=== PATIENT | male | born 1955 | race Caucasian/White ===

== ENCOUNTER 2020-02-01 15:20 | IRF | payer OTHER, SELFPAY ==
--- NOTE | 2020-02-01 15:53 | PC.NURSE ---
This patient, Tristian Villarreal, was admitted to [facility] Room 226-02. Patient/family oriented to hospital policies and general routines including ID bracelet, bed and alarms, visiting hours, pain management, procedures, bathroom and other care routines, personal items, smoking policy, room service/diet, and visiting hours. Valuables list has been completed. Information on how to activate the Rapid Response Team has been discussed. Patient/Family are encouraged to report perceived risks to care and to ask questions if they do not understand what they are told or what they should do.
[2020-02-01 16:00] VITALS: BP 124/62; PULSE 85; RESP 20; TEMP 36.3; O2SAT 98; BMI 27.1
[2020-02-01 17:21] VITALS: BMI 27.1
[2020-02-01] MEDS: ACETAMINOPHEN 500 MG TABLET 1000 MG PO (19:56)
[2020-02-01] MEDS: FAMOTIDINE 20 MG TABLET PO (19:56)
[2020-02-01 21:01] VITALS: BP 138/70; PULSE 89; RESP 20; TEMP 37; O2SAT 96
[2020-02-01] MEDS: MIRTAZAPINE 30 MG TABLET PO (21:03)
[2020-02-01] MEDS: ALBUTEROL SULFATE NEB 2.5 MG/0.5 ML INH INHALATION (21:26)
[2020-02-01] MEDS: IPRATROPIUM BR 0.02% INH SOLN 0.5 MG/2.5 ML VIAL INHALATION (21:27)
[2020-02-02] VITALS (9 sets, daily range): BP systolic 125–131; BP diastolic 77–85; PULSE 79–95; RESP 18; TEMP 35.9–36.8; O2SAT 95–96
[2020-02-02] MEDS: ACETAMINOPHEN 500 MG TABLET 1000 MG PO ×4 (00:11→17:28)
[2020-02-02 05:40] LABS: Basophils Absolute Auto 0.1 K/mm3 (0.0-0.1); Basophils Percent Auto 0.7 % (0.2-1.2); Eosinophils Absolute Auto 0.4 K/mm3 (0-0.3); Eosinophils Percent Auto 4.3 % (0-4.4); Hematocrit 31.2 % (42.0-52.0); Hemoglobin 9.8 g/dL (14.0-18.0); Immature Granulocyte Absolute 0.03 K/mm3 (0.00-0.031); Immature Granulocyte Percent A 0.4 % (0-0.5); Lymphocytes Absolute Auto 1.83 K/mm3 (0.9-3.2); Lymphocytes Percent Auto 21.4 % (18.3-44.2); Mean Corpuscular HGB Conc 31.4 g/dl (32-36); Mean Corpuscular Hemoglobin 29.4 pg (26-34); Mean Corpuscular Volume 93.7 fl (80-100); Mean Platelet Volume 9.2 fl (7.4-10.4); Monocytes Absolute Auto 0.7 K/mm3 (0.1-0.6); Monocytes Percent Auto 8.6 % (2.6-8.5); Neutrophils Absolute Auto 5.5 K/mm3 (1.3-6.7); Neutrophils Percent Auto 64.6 % (45.5-73.1); Platelet Count Result 357 k/mm3 (150-375); Red Blood Count 3.33 M/mm3 (4.6-6.20); Red Cell Distribution Width 15.9 % (11.5-14.5); White Blood Count 8.6 K/mm3 (4.5-10.0)
[2020-02-02 05:52] LABS: Anion Gap 6 mmol/L (8-16); Blood Urea Nitrogen 10 mg/dL (9-20); Calcium 9.1 mg/dL (8.4-10.2); Carbon Dioxide 31 mmol/L (22-30); Chloride 100 mmol/L (98-107); Estimated CRCL calculation 80 ml/min; Estimated Glomerular Filt Rate > 60; Glucose 99 mg/dL (75-110); Potassium 4.5 mmol/L (3.4-5.0); Sodium 137 mmol/L (137-145)
[2020-02-02] MEDS: ENOXAPARIN 40 MG/0.4 ML SYRINGE SUB-Q (09:21)
[2020-02-02] MEDS: FLUCONAZOLE 100 MG TABLET 200 MG PO (09:22)
[2020-02-02] MEDS: LIDOCAINE 5% PATCH 1 PATCH TOPICAL (09:22)
[2020-02-02] MEDS: FAMOTIDINE 20 MG TABLET PO ×2 (09:22→17:28)
[2020-02-02] MEDS: ATORVASTATIN 10 MG TABLET PO (09:23)
[2020-02-02] MEDS: IPRATROPIUM BR 0.02% INH SOLN 0.5 MG/2.5 ML VIAL INHALATION ×3 (09:41→20:43)
[2020-02-02] MEDS: ALBUTEROL SULFATE NEB 2.5 MG/0.5 ML INH INHALATION ×3 (09:41→20:43)
--- NOTE | 2020-02-02 14:07 | WPDREHABHP ---
H&P: HPI History of Present Illness Date/Time: 02/02/20 14:07 HISTORY OF PRESENT ILLNESS: The patient's primary rehab impairment category is pulmonary [] The etiologic diagnosis is left-sided pneumonia [] I saw this patient [id number] on February 02, 2020 at 1:00 p.m. [] The patient is a 64 years old male with a past medical history of hypertension who underwent elective outpatient surgery of right rotator cuff on December 31, 2019. After returning home, the patient was seen at his local hospital and was diagnosed with pneumonia and prescribes cefuroxime, [place] from my seen and a Medrol Dosepak on January 03, 2020. The patient continued to report shortness of breath, but also experiences sudden onset of left posterior chest pain and back pain, so he presented to [facility] on January 08, 2020. Chest x-ray revealed subcutaneous emphysema on the left. With pneumo mediastinum and subcutaneous air identified as well. Chest CT showed the absence of pulmonary embolism, I small left basilar pneumothorax comprising less than 10%, is scattered ground-glass opacities in both lungs, is small bilateral effusion, and the presence of pneumomediastinum. The patient required intubation and mechanical ventilatory support. The patient did have 1 episode of self-extubation with re-intubation required. He was then transferred to [facility] on January 07, 2025 critical care management. Upon admission, chest CTs and x-ray showed worsening infiltrations on the left with concern for possible aspiration when he self-extubated or possibly aspiration related to intubation for surgical procedure. Cultures were obtained and the patient was placed on Levaquin and vancomycin. Chest tube was placed on January 10, 2020 for left pleural effusion. Pleural fluid showed elevated amylase of 4480, consistent with esophageal perforation. Pleural fluid grew Marianne albicans. Patient is currently on oral fluconazole old until February 07, 2020. On January 13, 2020 CT scan showed resolution of the ear in the mediastinum and pleural space. On January 17, 2020 showed a moderate-sized pleural effusion with most of the fluid in the posterior inferior dependent left hemithorax with diffuse pleural thickening surrounding the entire left lung. The patient completed several different antibiotic regimens while hospitalize most recent being Zosyn completed on January 28, 2020 the patient underwent thoracotomy with decortication on January 18, 2020 the patient was extubated on January 22, 2020 and transferred out of the ICU on January 24, 2020 medial and posterior chest tubes were removed on January 23, 2020. The patient was improved and is medically stable for discharge, repeat imaging shows a small effusion and no evidence for extravasation or aspiration in the esophagus. He is on room air. The patient's diet has been advanced. He will discharged to rehab on Lovenox for DVT prophylaxis. The patient has not traveled outside the [place] or head contact with someone who is ill there is travel outside the [place] in the past 21 days. The patient has not traveled to an area of the [place] there is experiencing known transmission of the Coronavirus and has not had close personal contact with anyone that has. The patient does not have a fever. The patient is not experiencing lower respiratory illness symptoms. He has had recent surgical intervention and experiencing shortness of breath and dyspnea on exertion. COVID test negative x2 therapy was initiated at the acute care facility and the patient transferred to us from [facility] on February 01, 2020 FALLS OR SURGERIES: The patient has had major surgeries in the 100 days prior to admission. The patient had no falls in the past year. The had no falls with injury in the past year. PAST MEDICAL HISTORY: [] hypertension, hypercholesterolemia, papillary stenosis, degenerative arthritis, glaucoma, chronic hear
[2020-02-02] MEDS: MIRTAZAPINE 30 MG TABLET PO (20:15)
[2020-02-02] MEDS: LATANOPROST 0.005% OP SOLN 2.5 ML BTL 1 DROP EACH EYE (20:15)
[2020-02-02] MEDS: ALPRAZolam 0.5 MG TABLET 1 MG PO (20:15)
[2020-02-03] VITALS (11 sets, daily range): BP systolic 125–129; BP diastolic 75–82; PULSE 80–96; RESP 18–20; TEMP 35.7–36.4; O2SAT 97–99
[2020-02-03] MEDS: ACETAMINOPHEN 500 MG TABLET 1000 MG PO ×4 (00:08→17:54)
[2020-02-03] MEDS: IPRATROPIUM BR 0.02% INH SOLN 0.5 MG/2.5 ML VIAL INHALATION ×4 (08:45→21:40)
[2020-02-03] MEDS: ALBUTEROL SULFATE NEB 2.5 MG/0.5 ML INH INHALATION ×4 (08:45→21:40)
[2020-02-03] MEDS: ENOXAPARIN 40 MG/0.4 ML SYRINGE SUB-Q (09:25)
[2020-02-03] MEDS: FLUCONAZOLE 100 MG TABLET 200 MG PO (09:26)
[2020-02-03] MEDS: ATORVASTATIN 10 MG TABLET PO (09:26)
[2020-02-03] MEDS: polyethylene glycoL 3350 17 GM POWD.PACK PO (09:26)
[2020-02-03] MEDS: FAMOTIDINE 20 MG TABLET PO ×2 (09:26→17:54)
[2020-02-03] MEDS: LIDOCAINE 5% PATCH 1 PATCH TOPICAL (09:26)
--- NOTE | 2020-02-03 12:27 | WPDNEURORHBP ---
Subjective Date/time seen: 02/03/20 64 years old with ongoing history of 1. Hypertension 2. Status post elective outpatient surgery of right rotator cuff on December 31, 2019 resulting in multiple secondary complications such as pneumonia subcutaneous emphysema on the left side with new move mediastinum pulmonary embolism with effusion and pneumomediastinum requiring intubation and ventilatory support and 1 time self-extubation resulting in the aspiration and suck secondary pneumonia pleural fluid growing Marianne albicans requiring anti fungal medications most recent CT scan showing resolution of the air in the mediastinum has undergone several different antibiotic regimens therapy thoracotomy and decortication was transferred to rehab when medically stable on DVT 12:27 Review of Systems Review of Systems: All systems reviewed & are unremarkable except as noted in HPI and below Functional Status Ambulation Ability Ability to Ambulate 10 Feet: Standby Assistance Ability to Ambulate 50 Feet With 2 Turns: Standby Assistance Ambulation Assistive Devices: Cane, Crow Transfers Ability Ability to Transfer In/Out of Chair: Standby Assistance Exam Narrative: Exam Narrative: examination at this time reveals him to be awake alert cooperative in no obvious acute distress but somewhat unhappy with the whole situation speech nor dysphasic not dysarthric not dysphonic able to move the left upper extremity well but complains of discomfort on the right upper extremity movement particularly at the shoulder heart is regular lungs with no rhonchi abdomen is soft nontender neurologically he is fairly nonfocal with normal speech good mental status Objective Data Vital Signs Vital Signs: Vital Signs - 24 hr 02/02/20 14:00 02/02/20 14:55 02/02/20 15:03 Temperature 35.9 C L Pulse Rate 80 94 94 Respiratory Rate 18 18 18 Blood Pressure 131/85 Pulse Oximetry 95 02/02/20 20:46 02/02/20 20:50 02/02/20 20:52 Temperature 36.8 C Pulse Rate 85 85 86 Respiratory Rate 18 18 18 Blood Pressure 128/77 Pulse Oximetry 96 02/03/20 05:01 02/03/20 08:45 02/03/20 08:55 Temperature 35.7 C L Pulse Rate 82 88 85 Respiratory Rate 18 18 18 Blood Pressure 125/75 Pulse Oximetry 99 02/03/20 11:45 Temperature Pulse Rate 84 Respiratory Rate 18 Blood Pressure Pulse Oximetry Intake/Output Intake/Output: Intake & Output 01/31/20 02/01/20 02/02/20 02/03/20 23:59 23:59 23:59 23:59 Intake Total 240 960 240 Balance 240 960 240 Meds/Results Medications: Active Medications Generic Name Dose Route Start Last Admin Trade Name Leti PHILLIP Reason Stop Dose Admin Acetaminophen 1,000 mg 02/01/20 18:00 02/03/20 06:08 Tylenol Tablet PO 1,000 mg Q6H NEELIMA Administration Albuterol 2.5 mg 02/01/20 20:00 02/03/20 11:44 Albuterol Sulf Neb 2.5mg/0.5ml INHALATION 03/02/20 20:01 2.5 mg QIDRT NEELIMA Administration Alprazolam 1 mg 02/02/20 21:00 02/02/20 20:15 Xanax PO 1 mg HS NEELIMA Administration Atorvastatin Calcium 10 mg 02/02/20 09:00 02/03/20 09:26 Lipitor PO 10 mg DAILY NEELIMA Administration Enoxaparin Sodium 40 mg 02/02/20 09:00 02/03/20 09:25 Lovenox SUB-Q 40 mg DAILY NEELIMA Administration Famotidine 20 mg 02/01/20 17:00 02/03/20 09:26 Pepcid PO 20 mg BID NEELIMA Administration Fluconazole 200 mg 02/02/20 09:00 02/03/20 09:26 Diflucan Tablet PO 02/07/20 09:01 200 mg DAILY NEELIMA Administration Ipratropium [place] 0.5 mg 02/01/20 20:00 02/03/20 11:45 Atrovent Neb INHALATION 03/02/20 20:01 0.5 mg QIDRT NEELIMA Administration Latanoprost 1 drop 02/02/20 21:00 02/02/20 20:15 Xalatan EACH EYE 1 drop HS NEELIMA Administration Lidocaine 1 patch 02/02/20 09:00 02/03/20 09:26 Lidoderm TOPICAL 1 patch DAILY NEELIMA Administration Mirtazapine 30 mg 02/01/20 21:00 02/02/20 20:15 Remeron PO 30 mg HS NEELIMA Administration Oxycodone HCl 5 mg 02/02/20 1
[2020-02-03] MEDS: ALPRAZolam 0.5 MG TABLET 1 MG PO (20:47)
[2020-02-03] MEDS: MIRTAZAPINE 30 MG TABLET PO (20:47)
[2020-02-03] MEDS: LATANOPROST 0.005% OP SOLN 2.5 ML BTL 1 DROP EACH EYE (20:48)
[2020-02-04] VITALS (9 sets, daily range): BP systolic 137–145; BP diastolic 77–88; PULSE 77–103; RESP 16–20; TEMP 36.6–36.9; O2SAT 94–97; BMI 27.1
[2020-02-04] MEDS: ACETAMINOPHEN 500 MG TABLET 1000 MG PO ×4 (02:54→18:53)
[2020-02-04] MEDS: IPRATROPIUM BR 0.02% INH SOLN 0.5 MG/2.5 ML VIAL INHALATION ×3 (08:32→20:14)
[2020-02-04] MEDS: ALBUTEROL SULFATE NEB 2.5 MG/0.5 ML INH INHALATION ×3 (08:32→20:14)
[2020-02-04] MEDS: FAMOTIDINE 20 MG TABLET PO ×2 (08:55→17:00)
[2020-02-04] MEDS: FLUCONAZOLE 100 MG TABLET 200 MG PO (08:55)
[2020-02-04] MEDS: ENOXAPARIN 40 MG/0.4 ML SYRINGE SUB-Q (08:55)
[2020-02-04] MEDS: ATORVASTATIN 10 MG TABLET PO (08:55)
[2020-02-04] MEDS: LIDOCAINE 5% PATCH 1 PATCH TOPICAL (08:56)
[2020-02-04] MEDS: polyethylene glycoL 3350 17 GM POWD.PACK PO (08:56)
--- NOTE | 2020-02-04 10:24 | WPDNEURORHBP ---
Subjective Date/time seen: 02/04/20 10:24 64 years old admitted to the hospital subsequent to elective outpatient surgery for right rotator cuff on December 31, 2019 resulting in multiple secondary complications such as pneumonia subcutaneous emphysema pulmonary embolism pneumomediastinum pneumonia at present he is stable was considering the use of the muscle relaxer because of the complaint of the lower back particularly in the morning he has use a muscle relaxer in the past but he is not very convinced that he definitely wants to use them Review of Systems Review of Systems: All systems reviewed & are unremarkable except as noted in HPI and below Functional Status Ambulation Ability Ability to Ambulate 10 Feet: Standby Assistance Ability to Ambulate 50 Feet With 2 Turns: Standby Assistance Ability to Ambulate 150 Feet: Standby Assistance Ambulation Assistive Devices: Cane, Crow Transfers Ability Ability to Transfer In/Out of Chair: Standby Assistance Exam Narrative: Exam Narrative: examination revealed awake alert cooperative in no obvious acute distress except every now and then complain of low back pain but at the same time is reluctant to use the muscle relaxer and is able to carry on the physical therapy his speech is not dysphasic not dysarthric heart regular lungs clear abdomen is normal bowel sounds nontender and neurological examination is essentially unchanged Objective Data Vital Signs Vital Signs: Vital Signs - 24 hr 02/03/20 11:45 02/03/20 11:55 02/03/20 14:00 Temperature 36.4 C Pulse Rate 84 86 96 Respiratory Rate 18 18 20 Blood Pressure 129/82 Pulse Oximetry 97 02/03/20 16:07 02/03/20 16:18 02/03/20 21:41 Temperature Pulse Rate 88 87 84 Respiratory Rate 18 18 18 Blood Pressure Pulse Oximetry 02/03/20 21:48 02/03/20 22:00 02/04/20 06:00 Temperature 36.4 C L 36.6 C Pulse Rate 86 80 77 Respiratory Rate 18 20 20 Blood Pressure 145/82 H Pulse Oximetry 98 97 02/04/20 08:34 02/04/20 08:40 Temperature Pulse Rate 89 90 Respiratory Rate 16 16 Blood Pressure Pulse Oximetry Intake/Output Intake/Output: Intake & Output 02/01/20 02/02/20 02/03/20 02/04/20 23:59 23:59 23:59 23:59 Intake Total 240 960 960 240 Balance 240 960 960 240 Meds/Results Medications: Active Medications Generic Name Dose Route Start Last Admin Trade Name Leti PRN Reason Stop Dose Admin Acetaminophen 1,000 mg 02/01/20 18:00 02/04/20 05:24 Tylenol Tablet PO 1,000 mg Q6H NEELIMA Administration Albuterol 2.5 mg 02/01/20 20:00 02/04/20 08:32 Albuterol Sulf Neb 2.5mg/0.5ml INHALATION 03/02/20 20:01 2.5 mg QIDRT NEELIMA Administration Alprazolam 1 mg 02/02/20 21:00 02/03/20 20:47 Xanax PO 1 mg HS NEELIMA Administration Atorvastatin Calcium 10 mg 02/02/20 09:00 02/04/20 08:55 Lipitor PO 10 mg DAILY NEELIMA Administration Enoxaparin Sodium 40 mg 02/02/20 09:00 02/04/20 08:55 Lovenox SUB-Q 40 mg DAILY NEELIMA Administration Famotidine 20 mg 02/01/20 17:00 02/04/20 08:55 Pepcid PO 20 mg BID NEELIMA Administration Fluconazole 200 mg 02/02/20 09:00 02/04/20 08:55 Diflucan Tablet PO 02/07/20 09:01 200 mg DAILY NEELIMA Administration Ipratropium [place] 0.5 mg 02/01/20 20:00 02/04/20 08:32 Atrovent Neb INHALATION 03/02/20 20:01 0.5 mg QIDRT NEELIMA Administration Latanoprost 1 drop 02/02/20 21:00 02/03/20 20:48 Xalatan EACH EYE 1 drop HS NEELIMA Administration Lidocaine 1 patch 02/02/20 09:00 02/04/20 08:56 Lidoderm TOPICAL 1 patch DAILY NEELIMA Administration Mirtazapine 30 mg 02/01/20 21:00 02/03/20 20:47 Remeron PO 30 mg HS NEELIMA Administration Oxycodone HCl 5 mg 02/02/20 18:00 02/04/20 05:24 Roxicodone Ir Tablet PO 5 mg Q6HR NEELIMA Administration Polyethylene Glycol 17 gm 02/03/20 09:00 02/04/20 08:56 Miralax PO 17 gm QAM NEELIMA Administration Progress Note: A&P Assessment a
--- NOTE | 2020-02-04 12:03 | RPD ---
INDIVIDUALIZED PLAN OF CARE FOR Tristian Villarreal Brief Synthesis of Pre-Admission Screen, Post-Admission Evaluation and Therapy Evaluations: The patient presents to rehab with left-side pneumonia. Comorbidities include acute hypoxemic respiratory failure, mediastinitis, empyema, s/p thoracotomy, esophageal perforation, hypertension, hypercholesterolemia , right rotator cuff repair, degenerative arthritis, glaucoma, chronic hearing loss, GERD, and atopic dermatitis. The complexity of the patient's medical management, nursing, and therapy needs require an inpatient rehab hospital stay with a physician-led interdisciplinary team approach. The patient?s needs will be best met in an intensive program vs. at a lower level of care. The patient requires physician services for medical oversight, management of post-op complications in setting of present comorbidities, and pain management. The patient requires nursing services for anticoagulation therapy, DVT prophylactics, infection protection, medication management and education, pressure relief, and wound care. Deficits include:ADLs, Balance, Endurance, Family Training/Education, Mobility, Pain Management, Safety, Strength, Transfers, and ROM. Exchange Operator/Case Management for: Discharge Planning and Patient/Family Counseling Physical Therapy: 5 days per week for 90 minutes. Treatments may include: Therapeutic Exercise, Gait Training, Neuromuscular Re-education, Transfer Training, Community Reintegration, Bed Mobility, Patient/Family Education, Wheelchair Mobility Group Therapy/Concurrent Therapy Rationales: -Improve attention span during functional activities in a distracted environment. -Enhance problem solving and/or adequate judgment skills during functional activities in a distracted environment. -Promote increased safety awareness in a distracted environment to reduce fall risk with functional tasks, transfers, and ambulation to allow a more safe, self-sufficient return to the home environment. -Improve dynamic balance skills to promote safety and independence with functional activities in a distracted environment for maximum gain. Occupational Therapy: 5 days per week for 90 minutes. Treatments may include: Therapeutic Exercise, Therapeutic Activity, Cognitive Training, Self-Care Transfer Training, Community Reintegration, Home Management, Patient/Family Education, Wheelchair Mobility Training, Energy Conservation Training Group Therapy/Concurrent Therapy Rationales: -Allow therapist to observe and teach generalization and carry-over of skills learned in individual therapy. -Enhance problem solving and sequencing skills during therapeutic activities in a distracted environment. -Promote increased safety awareness in a realistic setting to reduce fall risk with functional tasks due to visual and verbal distractions. -Increase functional level with ADLs, ADL transfers and use of adaptive equipment through therapeutic activities with others while promoting safety to allow a more safe, self-sufficient return home. Medical Prognosis: Good Anticipated Length of Stay: 10 days Rehab Goals: Eating Goal: 06-Independent Oral Hygiene Goal: 06-Independent Toileting Hygiene Goal: 06-Independent Shower/Bathe Self Goal: 06-Independent Upper Body Dressing Goal: 06-Independent Lower Body Dressing Goal: 06-Independent Putting On/Taking Off Footwear Goal: 06-Independent Rolling Left and Right Goal: 06-Independent Sit to Lying Goal: 06-Independent Lying to Sitting on Side of Bed Goal: 06-Independent Sit to Stand Goal: 06-Independent Chair/Inb-[id number]-[id number] Transfer Goal: 06-Independent Toilet Transfer Goal: 06-Independent Car Transfer Goal: 06-Independent Walk 10' Goal: 06-Independent Walk 50' with Two Turns Goal: 06-Independent Walk 150' Goal: 06-Independent Walk 10' on Uneven Surface Goal: 06-Independent 1 Step (Curb) Goal: 06-Independent 4 Steps Goal: 06-Independent 12 Steps Goal Score: 06-Independent Picking Up Objec
--- NOTE | 2020-02-04 18:20 | PCRCNOTE ---
PT WAS NOT AVAILABLE FOR TREATMENT WANTED TO EAT. OUT OF RESPIRATORY TIME WINDOW
[2020-02-04] MEDS: ALPRAZolam 0.5 MG TABLET 1 MG PO (20:22)
[2020-02-04] MEDS: LATANOPROST 0.005% OP SOLN 2.5 ML BTL 1 DROP EACH EYE (20:23)
[2020-02-04] MEDS: MIRTAZAPINE 30 MG TABLET PO (20:23)
[2020-02-05] VITALS (7 sets, daily range): BP systolic 123–140; BP diastolic 68–76; PULSE 82–88; RESP 16–20; TEMP 36.1–36.9; O2SAT 94–100
[2020-02-05] MEDS: ACETAMINOPHEN 500 MG TABLET 1000 MG PO ×4 (02:00→17:35)
[2020-02-05] MEDS: ENOXAPARIN 40 MG/0.4 ML SYRINGE SUB-Q (08:57)
[2020-02-05] MEDS: ATORVASTATIN 10 MG TABLET PO (08:57)
[2020-02-05] MEDS: FLUCONAZOLE 100 MG TABLET 200 MG PO (08:57)
[2020-02-05] MEDS: polyethylene glycoL 3350 17 GM POWD.PACK PO (08:58)
[2020-02-05] MEDS: FAMOTIDINE 20 MG TABLET PO ×2 (08:58→17:35)
[2020-02-05] MEDS: LIDOCAINE 5% PATCH 1 PATCH TOPICAL (08:58)
--- NOTE | 2020-02-05 09:22 | PCPTNOTE ---
Tristian Rankin Phil was evaluated for a hemicane on 02/05/2020 by this physical therapist. The hemicane will resolve patient's mobility limitations and will be used for ADL's within the home. The patient can safely use the hemicane. ?The hemicane will resolve the patient?s mobility deficits, including transfers/gait/ADL's. Leia Gonzales PT
--- NOTE | 2020-02-05 09:22 | PCPTNOTE ---
Tristian Rankin Phil was evaluated for a straight cane on 02/05/2020 by this physical therapist. The cane will resolve patient's mobility limitations and will be used for ADL's within the home. The patient can safely use the cane. ?The cane will resolve the patient?s mobility deficits, including transfers/gait/ADL's. Leia Gonzales PT
--- NOTE | 2020-02-05 09:47 | PCOTNOTE ---
Therapist spoke with Dr. Blackburn ([phone]) 02/05/20 regarding clarification of NWB to RT UE following rotator cuff repair 12/31/19. Dr. Blackburn gave order to begin gentle passive ROM to RT UE starting today 02/05/20. Discharge sling 02/11/20 and begin AROM including pulleys, as well as stretching, with no ROM restrictions. No lifting greater than 10 pounds.
--- NOTE | 2020-02-05 11:11 | P.PNNERE_ITS ---
Subjective Date/time seen: 02/05/20 11:11 Functional Status Ambulation Ability Ability to Ambulate 10 Feet: Independent Ability to Ambulate 50 Feet With 2 Turns: Independent Ability to Ambulate 150 Feet: Independent Ambulation Assistive Devices: Cane, Crow Transfers Ability Ability to Transfer In/Out of Chair: Standby Assistance Objective Data Vital Signs Vital Signs: Vital Signs - 24 hr 02/04/20 14:00 02/04/20 14:14 02/04/20 20:15 Temperature 36.6 C Pulse Rate 103 H 95 85 Respiratory Rate 20 18 16 Blood Pressure 137/88 Pulse Oximetry 97 02/04/20 20:17 02/04/20 20:21 02/04/20 20:25 Temperature 36.9 C Pulse Rate 84 90 Respiratory Rate 16 18 Blood Pressure 138/77 Pulse Oximetry 94 97 02/05/20 05:56 Temperature 36.1 C L Pulse Rate 87 Respiratory Rate 18 Blood Pressure 123/76 Pulse Oximetry 95 Intake/Output Intake/Output: Intake & Output 02/02/20 02/03/20 02/04/20 02/05/20 23:59 23:59 23:59 23:59 Intake Total 960 960 720 360 Balance 960 960 720 360 Meds/Results Medications: Active Medications Generic Name Dose Route Start Last Admin Trade Name Freq PRN Reason Stop Dose Admin Acetaminophen 1,000 mg 02/01/20 18:00 02/05/20 06:11 Tylenol Tablet PO 1,000 mg Q6H NEELIMA Administration Albuterol 2.5 mg 02/01/20 20:00 02/04/20 20:14 Albuterol Sulf Neb 2.5mg/0.5ml INHALATION 03/02/20 20:01 2.5 mg QIDRT NEELIMA Administration Alprazolam 1 mg 02/02/20 21:00 02/04/20 20:22 Xanax PO 1 mg HS NEELIMA Administration Atorvastatin Calcium 10 mg 02/02/20 09:00 02/05/20 08:57 Lipitor PO 10 mg DAILY NEELIMA Administration Enoxaparin Sodium 40 mg 02/02/20 09:00 02/05/20 08:57 Lovenox SUB-Q 40 mg DAILY NEELIMA Administration Famotidine 20 mg 02/01/20 17:00 02/05/20 08:58 Pepcid PO 20 mg BID NEELIMA Administration Fluconazole 200 mg 02/02/20 09:00 02/05/20 08:57 Diflucan Tablet PO 02/07/20 09:01 200 mg DAILY NEELIMA Administration Ipratropium [place] 0.5 mg 02/01/20 20:00 02/04/20 20:14 Atrovent Neb INHALATION 03/02/20 20:01 0.5 mg QIDRT NEELIMA Administration Latanoprost 1 drop 02/02/20 21:00 02/04/20 20:23 Xalatan EACH EYE 1 drop HS NEELIMA Administration Lidocaine 1 patch 02/02/20 09:00 02/05/20 08:58 Lidoderm TOPICAL 1 patch DAILY NEELIMA Administration Mirtazapine 30 mg 02/01/20 21:00 02/04/20 20:23 Remeron PO 30 mg HS NEELIMA Administration Oxycodone HCl 5 mg 02/02/20 18:00 02/05/20 06:11 Roxicodone Ir Tablet PO 5 mg Q6HR NEELIMA Administration Polyethylene Glycol 17 gm 02/03/20 09:00 02/05/20 08:58 Miralax PO 17 gm QAM NEELIMA Administration
--- NOTE | 2020-02-05 11:13 | WPDNEURORHBP ---
Subjective Date/time seen: 02/05/20 11:13 Interval history: this 64-year-old is here after having had a thoracotomy for the significant pneumonia he had a complicated course as well described in the history and physical examination the patient denies any significant amount of the chest pain shortness of breath fever chills sore throat his progressing in the rehab quite well Review of Systems Review of Systems: All systems reviewed & are unremarkable except as noted in HPI and below Functional Status Ambulation Ability Ability to Ambulate 10 Feet: Independent Ability to Ambulate 50 Feet With 2 Turns: Independent Ability to Ambulate 150 Feet: Independent Ambulation Assistive Devices: Cane, Crow Transfers Ability Ability to Transfer In/Out of Chair: Standby Assistance Exam Const: General: comfortable and no acute distress HENMT: General nose exam: Normal nares present Mouth: Yes moist mucous membranes Eyes: General: appearance normal, both eyes and all related structures Neck: Neck: supple and no JVD Chest: Other: the thoracotomy incision looks clean and healthy lonny are there and will be removed as per instructions from the thoracic surgeon Resp: Effort & Inspection: normal respiratory effort Auscultation: clear to auscultation bilaterally Cardio: Rate: regular rate Rhythm: regular rhythm Skin: General skin exam: normal color and no rashes or lesions noted Neuro: Other: patient is awake alert and oriented to time place and person has normal speech and language function normal cranial examination generalized weakness of both lower extremities needing some assistance in the activities daily living Extrem: General: normal to inspection Other: the incision or small incisions rather from the rotator cuff surgery on his right shoulder is clean and healthy however he is nonweightbearing in that arm because of the recent surgery Psych: Mental Status: mental status grossly normal Objective Data Vital Signs Vital Signs: Vital Signs - 24 hr 02/04/20 14:00 02/04/20 14:14 02/04/20 20:15 Temperature 36.6 C Pulse Rate 103 H 95 85 Respiratory Rate 20 18 16 Blood Pressure 137/88 Pulse Oximetry 97 02/04/20 20:17 02/04/20 20:21 02/04/20 20:25 Temperature 36.9 C Pulse Rate 84 90 Respiratory Rate 16 18 Blood Pressure 138/77 Pulse Oximetry 94 97 02/05/20 05:56 Temperature 36.1 C L Pulse Rate 87 Respiratory Rate 18 Blood Pressure 123/76 Pulse Oximetry 95 Intake/Output Intake/Output: Intake & Output 02/02/20 02/03/20 02/04/20 02/05/20 23:59 23:59 23:59 23:59 Intake Total 960 960 720 360 Balance 960 960 720 360 Meds/Results Medications: Active Medications Generic Name Dose Route Start Last Admin Trade Name Leti PRN Reason Stop Dose Admin Acetaminophen 1,000 mg 02/01/20 18:00 02/05/20 06:11 Tylenol Tablet PO 1,000 mg Q6H NEELIMA Administration Albuterol 2.5 mg 02/01/20 20:00 02/04/20 20:14 Albuterol Sulf Neb 2.5mg/0.5ml INHALATION 03/02/20 20:01 2.5 mg QIDRT NEELIMA Administration Alprazolam 1 mg 02/02/20 21:00 02/04/20 20:22 Xanax PO 1 mg HS NEELIMA Administration Atorvastatin Calcium 10 mg 02/02/20 09:00 02/05/20 08:57 Lipitor PO 10 mg DAILY NEELIMA Administration Enoxaparin Sodium 40 mg 02/02/20 09:00 02/05/20 08:57 Lovenox SUB-Q 40 mg DAILY NEELIMA Administration Famotidine 20 mg 02/01/20 17:00 02/05/20 08:58 Pepcid PO 20 mg BID NEELIMA Administration Fluconazole 200 mg 02/02/20 09:00 02/05/20 08:57 Diflucan Tablet PO 02/07/20 09:01 200 mg DAILY NEELIMA Administration Ipratropium [place] 0.5 mg 02/01/20 20:00 02/04/20 20:14 Atrovent Neb INHALATION 03/02/20 20:01 0.5 mg QIDRT NEELIMA Administration Latanoprost 1 drop 02/02/20 21:00 02/04/20 20:23 Xalatan EACH EYE 1 drop HS NEELIMA Administration Lidocaine 1 patch 02/02/20 09:00 02/05/20 08:58 Lidoderm TOPICAL 1 patch DAILY NEELIMA Administrati
--- NOTE | 2020-02-05 11:18 | PCRCNOTE ---
PT UNAVAILABLE THE FEW TIMES THE THERAPIST CAME BY
[2020-02-05] MEDS: IPRATROPIUM BR 0.02% INH SOLN 0.5 MG/2.5 ML VIAL INHALATION ×2 (13:15→20:40)
[2020-02-05] MEDS: ALBUTEROL SULFATE NEB 2.5 MG/0.5 ML INH INHALATION ×2 (13:15→20:40)
[2020-02-05] MEDS: MIRTAZAPINE 30 MG TABLET PO (21:25)
[2020-02-05] MEDS: LATANOPROST 0.005% OP SOLN 2.5 ML BTL 1 DROP EACH EYE (21:25)
[2020-02-05] MEDS: ALPRAZolam 0.5 MG TABLET 1 MG PO (21:25)
[2020-02-06] VITALS (12 sets, daily range): BP systolic 120–143; BP diastolic 74–82; PULSE 79–93; RESP 16–20; TEMP 36.3–36.6; O2SAT 94–97
[2020-02-06] MEDS: ACETAMINOPHEN 500 MG TABLET 1000 MG PO ×5 (05:58→23:54)
[2020-02-06] MEDS: LIDOCAINE 5% PATCH 1 PATCH TOPICAL (08:59)
[2020-02-06] MEDS: polyethylene glycoL 3350 17 GM POWD.PACK PO (08:59)
[2020-02-06] MEDS: ATORVASTATIN 10 MG TABLET PO (09:00)
[2020-02-06] MEDS: ENOXAPARIN 40 MG/0.4 ML SYRINGE SUB-Q (09:00)
[2020-02-06] MEDS: FLUCONAZOLE 100 MG TABLET 200 MG PO (09:00)
[2020-02-06] MEDS: ALBUTEROL SULFATE NEB 2.5 MG/0.5 ML INH INHALATION ×4 (09:05→20:36)
[2020-02-06] MEDS: IPRATROPIUM BR 0.02% INH SOLN 0.5 MG/2.5 ML VIAL INHALATION ×4 (09:05→20:36)
[2020-02-06] MEDS: FAMOTIDINE 20 MG TABLET PO ×2 (09:21→18:14)
--- NOTE | 2020-02-06 10:51 | WPDNEURORHBP ---
Subjective Date/time seen: 02/06/20 10:51 Interval history: this 64-year-old gentleman is here status post thoracotomy on the left side Monie pneumonia which is being treated the patient is doing fairly well denies any headache nausea vomiting chest pain shortness of breath fever chills sore throat his generalized weakness is improving overall picture is of significant improvement the pain from the thoracotomy side is fairly decently controlled Review of Systems Review of Systems: All systems reviewed & are unremarkable except as noted in HPI and below Functional Status Ambulation Ability Ability to Ambulate 10 Feet: Independent Ability to Ambulate 50 Feet With 2 Turns: Independent Ability to Ambulate 150 Feet: Independent Ambulation Assistive Devices: Cane, Crow Transfers Ability Ability to Transfer In/Out of Chair: Independent Exam Const: General: comfortable and no acute distress HENMT: General nose exam: Normal nares present Mouth: Yes moist mucous membranes Eyes: General: appearance normal, both eyes and all related structures Neck: Neck: supple and no JVD Chest: Other: the site of the thoracotomy is clean healthy no sign of infection is noted lonny have been removed Resp: Effort & Inspection: normal respiratory effort Auscultation: clear to auscultation bilaterally Cardio: Rate: regular rate Rhythm: regular rhythm GI: GI Palp: Yes Soft to palpation Auscultation: normal bowel sounds Skin: General skin exam: normal color and no rashes or lesions noted Neuro: Other: patient is awake alert well oriented with the nonweightbearing of the right upper extremity for which he had the shoulder surgery performed which was followed by the pulmonary issues Extrem: General: normal to inspection Psych: Mental Status: mental status grossly normal Objective Data Vital Signs Vital Signs: Vital Signs - 24 hr 02/05/20 13:16 02/05/20 14:00 02/05/20 20:40 Temperature 36.3 C L Pulse Rate 84 86 87 Respiratory Rate 18 20 18 Blood Pressure 128/68 Pulse Oximetry 100 02/05/20 20:44 02/05/20 20:48 02/05/20 22:00 Temperature 36.9 C Pulse Rate 82 88 Respiratory Rate 16 18 Blood Pressure 140/74 Pulse Oximetry 94 97 02/06/20 06:00 02/06/20 09:07 02/06/20 09:12 Temperature 36.6 C Pulse Rate 79 91 91 Respiratory Rate 20 18 18 Blood Pressure 143/82 H Pulse Oximetry 94 Intake/Output Intake/Output: Intake & Output 02/03/20 02/04/20 02/05/20 02/06/20 23:59 23:59 23:59 23:59 Intake Total 960 720 840 480 Balance 960 720 840 480 Meds/Results Medications: Active Medications Generic Name Dose Route Start Last Admin Trade Name Brentonq PRN Reason Stop Dose Admin Acetaminophen 1,000 mg 02/01/20 18:00 02/06/20 05:58 Tylenol Tablet PO 1,000 mg Q6H NEELIMA Administration Albuterol 2.5 mg 02/01/20 20:00 02/06/20 09:05 Albuterol Sulf Neb 2.5mg/0.5ml INHALATION 03/02/20 20:01 2.5 mg QIDRT NEELIMA Administration Alprazolam 1 mg 02/02/20 21:00 02/05/20 21:25 Xanax PO 1 mg HS NEELIMA Administration Atorvastatin Calcium 10 mg 02/02/20 09:00 02/06/20 09:00 Lipitor PO 10 mg DAILY NEELIMA Administration Enoxaparin Sodium 40 mg 02/02/20 09:00 02/06/20 09:00 Lovenox SUB-Q 40 mg DAILY NEELIMA Administration Famotidine 20 mg 02/01/20 17:00 02/06/20 09:21 Pepcid PO 20 mg BID NEELIMA Administration Fluconazole 200 mg 02/02/20 09:00 02/06/20 09:00 Diflucan Tablet PO 02/07/20 09:01 200 mg DAILY NEELIMA Administration Ipratropium [place] 0.5 mg 02/01/20 20:00 02/06/20 09:05 Atrovent Neb INHALATION 03/02/20 20:01 0.5 mg QIDRT NEELIMA Administration Latanoprost 1 drop 02/02/20 21:00 02/05/20 21:25 Xalatan EACH EYE 1 drop HS NEELIMA Administration Lidocaine 1 patch 02/02/20 09:00 02/06/20 08:59 Lidoderm TOPICAL 1 patch DAILY NEELIMA Administration Mirtazapine 30 mg 02/01/20 21:00 02/05/20 21:25 Remeron PO 30 mg HS
[2020-02-06] MEDS: MIRTAZAPINE 30 MG TABLET PO (21:01)
[2020-02-06] MEDS: LATANOPROST 0.005% OP SOLN 2.5 ML BTL 1 DROP EACH EYE (21:01)
[2020-02-06] MEDS: ALPRAZolam 0.5 MG TABLET 1 MG PO (21:01)
[2020-02-07 05:45] VITALS: BP 135/84; PULSE 89; RESP 20; TEMP 36.9; O2SAT 96
[2020-02-07] MEDS: ACETAMINOPHEN 500 MG TABLET 1000 MG PO ×3 (05:59→18:02)
[2020-02-07] MEDS: ENOXAPARIN 40 MG/0.4 ML SYRINGE SUB-Q (09:33)
[2020-02-07] MEDS: polyethylene glycoL 3350 17 GM POWD.PACK PO (09:33)
[2020-02-07] MEDS: LIDOCAINE 5% PATCH 1 PATCH TOPICAL (09:33)
[2020-02-07] MEDS: FAMOTIDINE 20 MG TABLET PO ×2 (09:35→18:02)
[2020-02-07] MEDS: ATORVASTATIN 10 MG TABLET PO (09:35)
[2020-02-07] MEDS: FLUCONAZOLE 100 MG TABLET 200 MG PO (09:35)
--- NOTE | 2020-02-07 11:38 | PCRCNOTE ---
pt with occupational health this morning at 0800 tx time, and 1200 tx time. no tx given.
[2020-02-07 14:00] VITALS: BP 135/83; PULSE 100; RESP 20; TEMP 36.7; O2SAT 97
[2020-02-07 14:14] LABS: Basophils Percent Auto 0.4 % (0.2-1.2); Eosinophils Absolute Auto 0.2 K/mm3 (0-0.3); Eosinophils Percent Auto 2.1 % (0-4.4); Hematocrit 35.6 % (42.0-52.0); Hemoglobin 11.2 g/dL (14.0-18.0); Immature Granulocyte Absolute 0.04 K/mm3 (0.00-0.031); Immature Granulocyte Percent A 0.4 % (0-0.5); Lymphocytes Absolute Auto 1.88 K/mm3 (0.9-3.2); Lymphocytes Percent Auto 18.1 % (18.3-44.2); Mean Corpuscular HGB Conc 31.5 g/dl (32-36); Mean Corpuscular Hemoglobin 29.8 pg (26-34); Mean Corpuscular Volume 94.7 fl (80-100); Monocytes Absolute Auto 0.7 K/mm3 (0.1-0.6); Neutrophils Absolute Auto 7.5 K/mm3 (1.3-6.7); Platelet Count Result 414 k/mm3 (150-375); Red Blood Count 3.76 M/mm3 (4.6-6.20); Red Cell Distribution Width 15.2 % (11.5-14.5); White Blood Count 10.4 K/mm3 (4.5-10.0)
[2020-02-07 14:26] LABS: Anion Gap 10 mmol/L (8-16); Blood Urea Nitrogen 11 mg/dL (9-20); Calcium 9.7 mg/dL (8.4-10.2); Carbon Dioxide 30 mmol/L (22-30); Chloride 96 mmol/L (98-107); Estimated CRCL calculation 59 ml/min; Estimated Glomerular Filt Rate > 60; Glucose 113 mg/dL (75-110); Potassium 4.3 mmol/L (3.4-5.0); Sodium 136 mmol/L (137-145)
[2020-02-07] MEDS: ALBUTEROL SULFATE NEB 2.5 MG/0.5 ML INH INHALATION (15:13)
[2020-02-07] MEDS: IPRATROPIUM BR 0.02% INH SOLN 0.5 MG/2.5 ML VIAL INHALATION (15:13)
[2020-02-07 15:14] VITALS: PULSE 88; RESP 18
--- NOTE | 2020-02-07 17:21 | PC.NURSE ---
Patient concerned of tightness to incision of left scapula/flank area so took pictures per Dr. Nguyễn to send to his surgeon Dr. Castellanos. Spoke with Dr. Castellanos's nurse Guillermo and she stated that looked at pictures and is not concerned. Patient also requested blood cultures and those were done as well as CBC and BMP. WBC slightly elevated at 10.[address] Castellanos's nurse is aware as well. This fha underwriter asked if possible to move up his appointment as well from Feb 25; and she was able to change to at 1:15 (chest xray first). Patient is aware and entered into discharge instructions. Will continue to monitor for any s/s of distress such as SOB or cough.
[2020-02-07] MEDS: ALPRAZolam 0.5 MG TABLET 1 MG PO (20:33)
[2020-02-07] MEDS: MIRTAZAPINE 30 MG TABLET PO (20:33)
[2020-02-07] MEDS: LATANOPROST 0.005% OP SOLN 2.5 ML BTL 1 DROP EACH EYE (20:34)
[2020-02-07 21:20] VITALS: BP 131/75; PULSE 90; RESP 18; TEMP 36.6; O2SAT 97
[2020-02-08] MEDS: ACETAMINOPHEN 500 MG TABLET 1000 MG PO ×4 (00:25→17:01)
[2020-02-08 05:21] VITALS: BP 138/83; PULSE 86; RESP 18; TEMP 35.9; O2SAT 97
[2020-02-08] MEDS: FAMOTIDINE 20 MG TABLET PO ×2 (09:44→17:01)
[2020-02-08] MEDS: ATORVASTATIN 10 MG TABLET PO (09:44)
[2020-02-08] MEDS: LIDOCAINE 5% PATCH 1 PATCH TOPICAL (09:44)
[2020-02-08] MEDS: ENOXAPARIN 40 MG/0.4 ML SYRINGE SUB-Q (09:44)
[2020-02-08] MEDS: polyethylene glycoL 3350 17 GM POWD.PACK PO (09:45)
--- NOTE | 2020-02-08 09:49 | WPDNEURORHBP ---
Subjective Date/time seen: 02/07/20 09:49 Interval history: this is noted for February 07, 2020 patient was concerned about the possibility of infectious process at the side of the thoracotomy however the incision and the little swelling remains stable and in fact the redness is relatively better I had requested the CBC which shows related little elevated white count and our nurse was in touch after taking the pictures which were transmitted electronically to the surgeon his appointment was moved to early next week rather than waiting in February blood cultures are pending he has finished the course of the antibiotics he and the anti fungal he was on patient denied any headache nausea vomiting chills fevers chills sore throat however just does not feel good Review of Systems Review of Systems: All systems reviewed & are unremarkable except as noted in HPI and below Functional Status Ambulation Ability Ability to Ambulate 10 Feet: Independent Ability to Ambulate 50 Feet With 2 Turns: Independent Ability to Ambulate 150 Feet: Independent Ambulation Assistive Devices: Cane, Crow Transfers Ability Ability to Transfer In/Out of Chair: Independent Exam Const: General: comfortable and no acute distress HENMT: General nose exam: Normal nares present Mouth: Yes moist mucous membranes Eyes: General: appearance normal, both eyes and all related structures Neck: Neck: supple and no JVD Chest: Other: the incision of the thoracotomy of the left upper chest is clean the swelling is roughly either about the same or has gone down there is no tenderness there is no fluctuation noted to no hematoma noted and there is no sign of infection and the redness on the top part of the incision is much less Resp: Effort & Inspection: normal respiratory effort Auscultation: clear to auscultation bilaterally Cardio: Rate: regular rate Rhythm: regular rhythm GI: GI Palp: Yes Soft to palpation Auscultation: normal bowel sounds Skin: General skin exam: normal color and no rashes or lesions noted Neuro: Other: patient is awake alert well oriented not any distress he is limited because of the instructions to be nonweightbearing of the right upper extremity and that is where he had the shoulder surgery performed the incision of which is clean there is a little I would say not at the lower part of the right upper arm which is stable is not tender does not look infection is probably I small hematoma from either related to the IV however does not seem to be infected and it has been stable in the past few days Extrem: Other: I small swelling about an inch at the front of the right upper arm at the lower part does not seem infected or tender and has been stable in the previous few days Psych: Mental Status: mental status grossly normal Objective Data Vital Signs Vital Signs: Vital Signs - 24 hr 02/07/20 14:00 02/07/20 15:14 02/07/20 21:20 Temperature 36.7 C 36.6 C Pulse Rate 100 88 90 Respiratory Rate 20 18 18 Blood Pressure 135/83 131/75 Pulse Oximetry 97 97 02/08/20 05:21 Temperature 35.9 C L Pulse Rate 86 Respiratory Rate 18 Blood Pressure 138/83 Pulse Oximetry 97 Intake/Output Intake/Output: Intake & Output 02/05/20 02/06/20 02/07/20 02/08/20 23:59 23:59 23:59 23:59 Intake Total 840 960 720 480 Balance 840 960 720 480 Meds/Results Medications: Active Medications Generic Name Dose Route Start Last Admin Trade Name Freq PRN Reason Stop Dose Admin Acetaminophen 1,000 mg 02/01/20 18:00 02/08/20 05:44 Tylenol Tablet PO 1,000 mg Q6H NEELIMA Administration Hydrocodone Bitart/Acetaminophen 1 tab 02/07/20 10:42 [place] 5-325 Mg PO Q6H PRN Breakthrough Pain Albuterol 2.5 mg 02/08/20 09:05 Albuterol Sulf Neb 2.5mg/0.5ml INHALATION 03/02/20 20:01 QIDRT PRN Shortness Of Breath Or Wheezing Alprazolam 1 mg 02/02/20 21:00 02/07/20 20:33 Xanax PO 1 mg HS NEELIMA Administration Atorvas
--- NOTE | 2020-02-08 10:44 | PCDIET ---
Nutrition Follow-Up Complete: Nutrition Diagnosis: Involuntary weight loss related to prolonged hospitalization as evidenced by reported weight loss of 27 pounds during recent hospital stay. Nutrition Goal: Patient to consume 75% of meals or greater. Goal met. Patient consuming 100% of most meals on regular diet which is appropriate. Patient denies needs or concerns at this time. Declines oral supplement again. Snacks between meals encouraged to promote weight maintenance. Last recorded weight is 80.8 kg. Recommend obtaining new weight. Bowel Motility: Last BM on 02/07/20 per nursing flowsheet. Labs Reviewed: Hgb (11.2), Hct (35.6), Glu (113) Meds Noted: [place], Albuterol, Pepcid, Atrovent, Remeron, Roxicodone, Miralax Additional Notes: Surgical incision documented with no other skin issues. Will continue to monitor with same goal. Nutrition Monitoring and Evaluation: Follow up in 5 days.
--- NOTE | 2020-02-08 11:01 | WPDNEURORHBP ---
Subjective Date/time seen: 02/08/20 11:01 Interval history: this 64-year-old gentleman is here after a complicated course post shoulder surgery on his right side developing pneumonia followed by pleural effusion for which a thoracotomy was performed his doing fairly well but quite concerned about any infectious process however the incision is relatively kidney under and healthy and the knot in his lower part of the right upper arm is stable without any sign of infection process his white count is slightly elevated so I have over the CBC with diff and BMP for tomorrow his slid to be discharged couple of days and is asking for the medications to be done today so that he would orange picker with pharmacy Review of Systems Review of Systems: All systems reviewed & are unremarkable except as noted in HPI and below Functional Status Ambulation Ability Ability to Ambulate 10 Feet: Independent Ability to Ambulate 50 Feet With 2 Turns: Independent Ability to Ambulate 150 Feet: Independent Ambulation Assistive Devices: Cane, Crow Transfers Ability Ability to Transfer In/Out of Chair: Independent Exam Const: General: comfortable and no acute distress HENMT: General nose exam: Normal nares present Mouth: Yes moist mucous membranes Eyes: General: appearance normal, both eyes and all related structures Neck: Neck: supple and no JVD Chest: Other: the thoracotomy site on the left upper chest is clean and healthy /swelling but no sign of infection process no sign of hematoma Resp: Effort & Inspection: normal respiratory effort Auscultation: clear to auscultation bilaterally Cardio: Rate: regular rate Rhythm: regular rhythm GI: GI Palp: Yes Soft to palpation Auscultation: normal bowel sounds Skin: General skin exam: normal color and no rashes or lesions noted Neuro: Other: patient is awake and alert well oriented time place and person his generalized weakness improved his been walking at least 150 feet each day and maybe twice a day and doing fairly well as for as the generalized weakness and abilities concern Extrem: General: normal to inspection Psych: Mental Status: mental status grossly normal Objective Data Vital Signs Vital Signs: Vital Signs - 24 hr 02/07/20 14:00 02/07/20 15:14 02/07/20 21:20 Temperature 36.7 C 36.6 C Pulse Rate 100 88 90 Respiratory Rate 20 18 18 Blood Pressure 135/83 131/75 Pulse Oximetry 97 97 02/08/20 05:21 Temperature 35.9 C L Pulse Rate 86 Respiratory Rate 18 Blood Pressure 138/83 Pulse Oximetry 97 Intake/Output Intake/Output: Intake & Output 02/05/20 02/06/20 02/07/20 02/08/20 23:59 23:59 23:59 23:59 Intake Total 840 960 720 480 Balance 840 960 720 480 Meds/Results Medications: Active Medications Generic Name Dose Route Start Last Admin Trade Name Freq PRN Reason Stop Dose Admin Acetaminophen 1,000 mg 02/01/20 18:00 02/08/20 05:44 Tylenol Tablet PO 1,000 mg Q6H NEELIMA Administration Hydrocodone Bitart/Acetaminophen 1 tab 02/07/20 10:42 [place] 5-325 Mg PO Q6H PRN Breakthrough Pain Albuterol 2.5 mg 02/08/20 09:05 Albuterol Sulf Neb 2.5mg/0.5ml INHALATION 03/02/20 20:01 QIDRT PRN Shortness Of Breath Or Wheezing Alprazolam 1 mg 02/02/20 21:00 02/07/20 20:33 Xanax PO 1 mg HS NEELIMA Administration Atorvastatin Calcium 10 mg 02/02/20 09:00 02/08/20 09:44 Lipitor PO 10 mg DAILY NEELIMA Administration Enoxaparin Sodium 40 mg 02/02/20 09:00 02/08/20 09:44 Lovenox SUB-Q 40 mg DAILY NEELIMA Administration Famotidine 20 mg 02/01/20 17:00 02/08/20 09:44 Pepcid PO 20 mg BID NEELIMA Administration Ipratropium [place] 0.5 mg 02/08/20 09:05 Atrovent Neb INHALATION 03/02/20 20:01 QIDRT PRN Shortness Of Breath Or Wheezing Latanoprost 1 drop 02/02/20 21:00 02/07/20 20:34 Xalatan EACH EYE 1 drop HS NEELIMA Administration Lidocaine 1 patch 02/02/20 09:00 02/08/20 09:44 Lidoderm
--- NOTE | 2020-02-08 12:51 | PC.NURSE ---
pt has had increased sleepiness at this time. updated. roxicodone put on hold at this time. scheduled tylenol continues. will continue to monitor.
[2020-02-08 14:00] VITALS: BP 133/82; PULSE 90; RESP 18; TEMP 36.2; O2SAT 96
--- NOTE | 2020-02-08 16:00 | PC.NURSE ---
Patient is c/o pain to lower right calf, no redness or warmth, no induration, feels he may have pulled a muscle. will try warmth (K-pad)
[2020-02-08] MEDS: ALPRAZolam 0.5 MG TABLET 1 MG PO (20:20)
[2020-02-08] MEDS: LATANOPROST 0.005% OP SOLN 2.5 ML BTL 1 DROP EACH EYE (20:20)
[2020-02-08] MEDS: MIRTAZAPINE 30 MG TABLET PO (20:21)
[2020-02-08] MEDS: HYDROcodone/acetaminophen (*CRX) 5-325 MG TABLET 1 TAB PO (21:57)
[2020-02-08 22:00] VITALS: BP 137/72; PULSE 92; RESP 18; TEMP 37; O2SAT 96
[2020-02-09] MEDS: HYDROcodone/acetaminophen (*CRX) 5-325 MG TABLET 1 TAB PO ×4 (03:45→23:57)
[2020-02-09 04:56] LABS: Basophils Percent Auto 0.5 % (0.2-1.2); Eosinophils Absolute Auto 0.3 K/mm3 (0-0.3); Eosinophils Percent Auto 3.8 % (0-4.4); Hematocrit 30.6 % (42.0-52.0); Hemoglobin 9.7 g/dL (14.0-18.0); Immature Granulocyte Absolute 0.02 K/mm3 (0.00-0.031); Immature Granulocyte Percent A 0.2 % (0-0.5); Lymphocytes Absolute Auto 1.66 K/mm3 (0.9-3.2); Lymphocytes Percent Auto 20.4 % (18.3-44.2); Mean Corpuscular HGB Conc 31.7 g/dl (32-36); Mean Corpuscular Volume 91.3 fl (80-100); Mean Platelet Volume 8.9 fl (7.4-10.4); Monocytes Absolute Auto 0.6 K/mm3 (0.1-0.6); Monocytes Percent Auto 7.4 % (2.6-8.5); Neutrophils Absolute Auto 5.5 K/mm3 (1.3-6.7); Neutrophils Percent Auto 67.7 % (45.5-73.1); Platelet Count Result 360 k/mm3 (150-375); Red Blood Count 3.35 M/mm3 (4.6-6.20); Red Cell Distribution Width 14.6 % (11.5-14.5); White Blood Count 8.1 K/mm3 (4.5-10.0)
[2020-02-09 05:08] LABS: Anion Gap 6 mmol/L (8-16); Blood Urea Nitrogen 11 mg/dL (9-20); Carbon Dioxide 30 mmol/L (22-30); Chloride 98 mmol/L (98-107); Estimated CRCL calculation 80 ml/min; Estimated Glomerular Filt Rate > 60; Glucose 106 mg/dL (75-110); Potassium 4.4 mmol/L (3.4-5.0); Sodium 134 mmol/L (137-145)
[2020-02-09 06:00] VITALS: BP 119/78; PULSE 89; RESP 18; TEMP 36.3; O2SAT 97
[2020-02-09] MEDS: ACETAMINOPHEN 500 MG TABLET 1000 MG PO ×3 (06:11→17:49)
[2020-02-09] MEDS: ATORVASTATIN 10 MG TABLET PO (09:38)
[2020-02-09] MEDS: LIDOCAINE 5% PATCH 1 PATCH TOPICAL (09:39)
[2020-02-09] MEDS: FAMOTIDINE 20 MG TABLET PO ×2 (09:39→16:53)
[2020-02-09 14:00] VITALS: BP 123/88; PULSE 100; RESP 20; TEMP 36.1; O2SAT 98
--- NOTE | 2020-02-09 16:31 | WPDNEURORHBP ---
Subjective Date/time seen: 02/09/20 16:31 Interval history: this 64-year-old gentleman is here status post pneumonia status post thoracotomy and is ready to be discharged tomorrow the patient is afebrile a denies any shortness of breath chest pain and the white count is within the normal range she is not running any fever chills sore throat he does have an appointment to see the surgeon next week on Tuesday Review of Systems Review of Systems: All systems reviewed & are unremarkable except as noted in HPI and below Functional Status Ambulation Ability Ability to Ambulate 10 Feet: Independent Ability to Ambulate 50 Feet With 2 Turns: Independent Ability to Ambulate 150 Feet: Independent Ambulation Assistive Devices: Cane, Crow Transfers Ability Ability to Transfer In/Out of Chair: Independent Exam Const: General: comfortable, no acute distress and uncomfortable HENMT: General nose exam: Normal nares present Mouth: Yes moist mucous membranes Eyes: General: appearance normal, both eyes and all related structures Neck: Neck: supple and no JVD Chest: Other: the left thoracotomy site is clean no drainage is noted no sign of infection is seen no redness is noted Resp: Effort & Inspection: normal respiratory effort Auscultation: clear to auscultation bilaterally Cardio: Rate: regular rate Rhythm: regular rhythm GI: GI Palp: Yes Soft to palpation Auscultation: normal bowel sounds Skin: General skin exam: normal color and no rashes or lesions noted Neuro: Other: patient is awake and alert well oriented time place person has normal speech and language function and apart from the limitation due to his right shoulder surgery he has really essentially no other neurological deficit and is debility and weakness has improved Extrem: General: normal to inspection Other: right upper extremities in sling Psych: Mental Status: mental status grossly normal Objective Data Vital Signs Vital Signs: Vital Signs - 24 hr 02/08/20 22:00 02/09/20 06:00 02/09/20 14:00 Temperature 37.0 C 36.3 C L 36.1 C L Pulse Rate 92 89 100 Respiratory Rate 18 18 20 Blood Pressure 137/72 119/78 123/88 Pulse Oximetry 96 97 98 Intake/Output Intake/Output: Intake & Output 02/06/20 02/07/20 02/08/20 02/09/20 23:59 23:59 23:59 23:59 Intake Total 433 500 2707 480 Balance 330 525 1564 480 Meds/Results Medications: Active Medications Generic Name Dose Route Start Last Admin Trade Name Freq PRN Reason Stop Dose Admin Acetaminophen 1,000 mg 02/01/20 18:00 02/09/20 13:24 Tylenol Tablet PO 1,000 mg Q6H NEELIMA Administration Hydrocodone Bitart/Acetaminophen 1 tab 02/07/20 10:42 02/09/20 11:10 [place] 5-325 Mg PO 1 tab Q6H PRN Administration Breakthrough Pain Albuterol 2.5 mg 02/08/20 09:05 Albuterol Sulf Neb 2.5mg/0.5ml INHALATION 03/02/20 20:01 QIDRT PRN Shortness Of Breath Or Wheezing Alprazolam 1 mg 02/02/20 21:00 02/08/20 20:20 Xanax PO 1 mg HS NEELIMA Administration Atorvastatin Calcium 10 mg 02/02/20 09:00 02/09/20 09:38 Lipitor PO 10 mg DAILY NEELIMA Administration Famotidine 20 mg 02/01/20 17:00 02/09/20 09:39 Pepcid PO 20 mg BID NEELIMA Administration Ipratropium [place] 0.5 mg 02/08/20 09:05 Atrovent Neb INHALATION 03/02/20 20:01 QIDRT PRN Shortness Of Breath Or Wheezing Latanoprost 1 drop 02/02/20 21:00 02/08/20 20:20 Xalatan EACH EYE 1 drop HS NEELIMA Administration Lidocaine 1 patch 02/02/20 09:00 02/09/20 09:39 Lidoderm TOPICAL 1 patch DAILY NEELIMA Administration Mirtazapine 30 mg 02/01/20 21:00 02/08/20 20:21 Remeron PO 30 mg HS NEELIMA Administration Oxycodone HCl 5 mg 02/02/20 18:00 02/08/20 12:23 Roxicodone Ir Tablet PO Not Given Q6HR NEELIMA Polyethylene Glycol 17 gm 02/03/20 09:00 02/08/20 09:45 Miralax PO 17 gm QAM NEELIMA Administration Labs Labs: Laboratory Results - last 24 hr
[2020-02-09] MEDS: ALPRAZolam 0.5 MG TABLET 1 MG PO (20:18)
[2020-02-09] MEDS: LATANOPROST 0.005% OP SOLN 2.5 ML BTL 1 DROP EACH EYE (20:19)
[2020-02-09] MEDS: MIRTAZAPINE 30 MG TABLET PO (20:19)
[2020-02-09 22:00] VITALS: BP 158/90; PULSE 86; RESP 20; TEMP 36.2; O2SAT 100
[2020-02-10] MEDS: HYDROcodone/acetaminophen (*CRX) 5-325 MG TABLET 1 TAB PO (05:26)
[2020-02-10 06:00] VITALS: BP 146/91; PULSE 95; RESP 20; TEMP 36.7; O2SAT 95
[2020-02-10] MEDS: ATORVASTATIN 10 MG TABLET PO (09:30)
[2020-02-10] MEDS: FAMOTIDINE 20 MG TABLET PO (09:30)
--- NOTE | 2020-02-13 09:18 | PM.DS ---
DS: Admitting Diagnosis Admitting Diagnosis Admitting Diagnosis: 64 years old admitted to the rehab floor and seen by us on February 02, 2020 with the diagnosis of left-sided pneumonia and comorbid conditions of 1. Hypertension 2. Status post right rotator cuff surgery on December 31, 2019 and rather complicated stormy postop course as per the information available he developed pneumonia with subcutaneous emphysema pneumo mediastinum small bilateral effusion requiring intubation and mechanical ventilatory support complicated by 1 episode of self-extubation with re-intubation requirement. He was transferred to [facility] for critical care management management Quick documented to have the burning infiltration on the left with the possibility of aspiration treated with the antibiotics pleural fluid grew and Marianne albicans went through several different antibiotic regimens thoracotomy decortication extubation and after the final stabilization transferred to the rehab hospital course was otherwise uncomplicated on the rehab floor he remained afebrile has no difficulties in breathing white count was running within normal range and at the time of discharge he was independent in ambulation to 10ft 50ft V2 turns 150ft and using only him my cane he was able to transfer in and out of chair independently examination revealed him to be awake alert in no obvious acute distress ear nose throat examination normal eyes normal neck is supple with no JVD no restricted range of motion chest clear left thoracotomy site was clean with no drainage with no signs of infection or redness there was no rhonchi or crepitations heart was regular with no murmur abdomen was soft with normal bowel sounds no tenderness neurological examination was stable normal except that he had the right shoulder are restricted range of motion because of the surgery extremities otherwise normal DS: Summary Time Spent with Patient Time attestation: Total time spent providing and/or coordinating discharge services: DS: Data Data Completed and Pending Labs on day of discharge: Preliminary micro results at discharge 02/07/20 14:43 Blood Culture - Preliminary Blood 02/07/20 14:03 Blood Culture - Preliminary Blood Discharge Plan Discharge Attending physician on discharge: Low Nguyễn Discharging Clinician: Low Nguyễn Anticipated Discharge Date/Time: 02/10/20 11:11 Patient Disposition: Home Health Service Activity: may shower and no driving Diet: as tolerated Wound Care Instructions: follow printed instructions Discharge Instructions: Per Care Coordination: Home Health services were arranged through [facility]. [facility] can be contacted at [phone]. Please fax discharge instructions to [facility] [phone] Patient Instructions: Antibiotic Form, Enoxaparin (By injection), How to Stop Smoking (DC), Pain Management (DC) Stand Alone Forms: General Discharge Information Follow-up/Referrals: Isma Stoddard MD [Other] (Call for appointment in 1-2 weeks after rehab discharge.) ENT [Other] (ENT evaluation after seen by cardiothoracic surgery) Tristian Castellanos MD [Other] - Keep Reg. Scheduled Appt. (You have an appointment on Wednesday February 12, 2020 at 1:15 for chest xray and to see doctor (actual appointment is at 1:[address] Castellanos).) Cardiovascular and Thoracic Surgery [Other] Discharge Medications: New latanoprost [Xalatan] 0.005 % Drops 1 drp LEFTEYE HS Qty: 1 RF: 0 polyethylene glycol 3350 [Miralax] 17 gram Powder In Packet 17 g PO QAM Qty: 30 RF: 0 acetaminophen 500 mg Tablet 1,000 mg PO Q6H Qty: 0 RF: 0 Continued ipratropium-albuterol 0.5 mg-3 mg(2.5 mg base)/3 mL Solution For Nebulization 3 ml INHALATION QID Qty: 1 RF: 0 atorvastatin 10 mg Tablet 10 mg PO DAILY Qty: 30 RF: 0 famotidine 20 mg Tablet 20 mg PO BID Qty: 60 RF: 0 mirtazapine
== END 2020-02-10 11:45 | disposition home health service (06) | DRG 949 ==
PROVIDERS: Admitting Provider Psychiatry & Neurology Neurology; PCP Family Medicine; Visit Provider Psychiatry & Neurology Neurology
DX: Z48.813 Encounter for surgical aftercare following surgery on the respiratory system (principal); K22.3 Perforation of esophagus; T81.82XD Emphysema (subcutaneous) resulting from a procedure, subsequent encounter; E78.00 Pure hypercholesterolemia, unspecified; H91.90 Unspecified hearing loss, unspecified ear; I10 Essential (primary) hypertension; K21.9 Gastro-esophageal reflux disease without esophagitis; Z87.891 Personal history of nicotine dependence; Z23 Encounter for immunization
CPT/HCPCS: 36415; 80048; 85025; 87040; 94640; 97110; 97116; 97161; 97166; 97530; 97535; A9270; J1650